=== PATIENT | male | born 1995 | race Caucasian/White ===

== ENCOUNTER 2020-11-22 12:56 | Emergency (ER) | payer OTHER, SELFPAY ==
--- NOTE | 2020-11-22 16:23 | ER ---
Nurse's Notes [facility] Name: Frederick Peoples Age: 24 yrs Sex: Male : 1995 Arrival Date: 11/22/2020 Time: 13:00 Bed Waiting Private MD: Diagnosis: Presentation: 11/22 14:24 Chief complaint: Patient states: Nausea, vomiting, diarrhea, body aches since 11/21 \T\ kg 18:30. Coronavirus screen: Client denies travel out of the [place] in the last 14 days. At this time, unable to obtain information related to travel outside the [place] Client presents with at least one sign or symptom that may indicate coronavirus-19. Standard/surgical mask placed on the client. Provider contacted for isolation considerations. Ebola Screen: Patient negative for fever greater than or equal to 101.5 degrees Fahrenheit, and additional compatible Ebola Virus Disease symptoms Patient denies exposure to infectious person. Patient denies travel to an Ebola-affected area in the 21 days before illness onset. Initial Sepsis Screen: Does the patient meet any 2 criteria? No. Patient's initial sepsis screen is negative. Does the patient have a suspected source of infection? No. Patient's initial sepsis screen is negative. Risk Assessment: Do you want to hurt yourself or someone else? Patient reports no desire to harm self or others. Onset of symptoms was November 21, 2020 at 18:30. 14:24 Method Of Arrival: Ambulatory kg 14:24 Acuity: SONIA 4 kg Triage Assessment: 14:27 General: Appears in no apparent distress. Behavior is calm, cooperative, appropriate kg for age, quiet. Pain: Complains of pain in abdomen Pain does not radiate. Pain currently is 6 out of 10 on a pain scale. at worst was 9 out of 10 on a pain scale. level that patient reports is acceptable is 5 out of 10 on a pain scale. Quality of pain is described as aching, Pain began 11/21 \T\ 18:30. GI: Reports lower abdominal pain, upper abdominal pain, diarrhea, nausea, vomiting, since 11/21 \T\ 18:30. Historical: - Allergies: 14:27 No Known Allergies; kg - Home Meds: 14:27 None [Active]; kg - PMHx: 14:27 None; kg - PSHx: 14:27 None; kg - Immunization history:: Adult Immunizations not up to date, Client reports having NOT received the Covid vaccine. - Social history:: Smoking status: Patient denies any tobacco usage or history of. Patient uses alcohol, occasionally. street drugs, marijuana. Vital Signs: 14:24 BP 118 / 94; Pulse 98; Resp 20; Temp 99.5(O); Pulse Ox 97% on R/A; Weight 62.01 kg (M); kg Height 6 ft. 1 in. (185.42 cm) (R); Pain 6/10; 14:24 Body Mass Index 18.04 (62.01 kg, 185.42 cm) kg ED Course: 13:00 Patient arrived in ED. 14:26 Triage completed. kg 14:27 Arm band placed on right wrist. kg 16:09 Glen Slaughter PA is PHCP. cp 16:09 Glen Palma MD is Attending Physician. cp Administered Medications: No medications were administered Outcome: 16:22 Patient left the ED. iw Signatures: Monse Good, RN RN iw Glen Slaughter PA PA cp Anaid Benson, JOANNE RN kg Janie Swan
[2020-11-22 16:37] VITALS: BP 118/94; TEMP 99.5; O2SAT 97
== END 2020-11-22 16:22 | disposition left against medical advice (07) ==
LOC: ER 12:56
DX: Z53.21 Procedure and treatment not carried out due to patient leaving prior to being seen by health care provider (principal)
CPT/HCPCS: 87804; U0003